=== PATIENT | female | born 1965 | race Caucasian/White ===

== ENCOUNTER 2016-10-06 19:49 | Emergency (ER) | payer MEDICAID ==
--- NOTE | 2016-10-06 20:33 | ERNOTE ---
Dyspnea - General Presenting Symptoms: shortness of breath, difficulty of breathing Time Seen by Provider: 10/06/16 20:23 Source: patient, EMS - Immun/Allergies/Home Medications Immunizations: IMMUNIZATION HX Immunizations Up to Date No History of Influenza Vaccine No Hx Pneumococcal Vaccination No Allergies/Adverse Reactions: Allergies ceftriaxone sodium [From Rocephin] Allergy (Severe, Verified 07/18/16 09:16) anaphylactic Home Medications: HOME MEDICATIONS Eszopiclone [Lunesta] 3 mg PO HS 04/21/15 [Last Taken 07/17/16] Prazosin HCl [Minipress] 5 - 10 mg PO HS 04/21/15 [Last Taken 07/17/16] Ziprasidone HCl [Geodon] 40 mg PO HS 04/21/15 [Last Taken 07/17/16] Diazepam 10 mg PO BID 12/09/15 [Last Taken 07/17/16] Albuterol Sulfate [Proair Hfa] 1 puff IH Q6H PRN 07/07/16 [Last Taken 07/17/16] Pantoprazole Sodium [Protonix] 40 mg PO DAILY 07/07/16 [Last Taken 07/17/16] rOPINIRole HCL [Requip] 1 mg PO HS 07/07/16 [Last Taken 07/17/16] Albuterol Sulfate [Proair Hfa] 2 puff IH TID PRN #1 inhaler 10/06/16 [Last Taken Unknown] - History of Present Illness Narrative: shortness of breath for 3 days. 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, oxygen Initiating event: Reports: upper resp illness Modifying Factors - (Improves): Reports: oxygen Modifying Factors (Worsens): Reports: coughing Associated Symptoms-Dyspnea: Reports: fever/chills, sweating, chest pain/ discomfort Review of Systems - Review of Systems Constitutional: Present: fever, chills EYE: Present: no symptoms reported ENT: Present: no symptoms reported Respiratory: Present: shortness of breath, cough, other - hemoptysis Cardiology: Present: no symptoms reported Gastrointestinal/Abdominal: Present: abdominal pain Genitourinary: Present: no symptoms reported Musculoskeletal: Present: no symptoms reported Skin: Present: no symptoms reported Neurological: Present: no symptoms reported Endocrine: Present: no symptoms reported Hematologic/Lymphatic: Present: no symptoms reported Psych: Present: no symptoms reported - Patient's Past Medical History Patient History - Medical: Anxiety, Chronic Pain, Depression Patient History - Cardiac/Respiratory: COPD Patient History - Cancer: No Hx of Cancer Patient History - Surgical Procedures: Appendectomy, Cholecystectomy, Colonoscopy, EGD, Hysterectomy, Total Knee Replacement - Family History Brother Family History - Medical: Diabetes Type 2 Family History - Cardiac/Respiratory: No pertinent hx Father Family History - Medical: No pertinent hx Family History - Cardiac/Respiratory: Myocardial Infarction Mother Family History - Medical: No pertinent hx Family History - Cardiac/Respiratory: Myocardial Infarction Sister Family History - Medical: No pertinent hx Family History - Cardiac/Respiratory: No pertinent hx - Social History Living Situations: home Does anyone smoke in the home?: Yes Smoking Status: Current every day smoker Have you smoked in the past 12 months: Yes Do you dip or chew tobacco: No Patient requests Smoking Cessation Consult: No Initiate information on Smoking Cessation: No Alcohol Use: none Drug Use: none Physical Exam - Physical Exam General Appearance: Present: wd/wn, mild distress, moderate distress Eye Exam: Normal inspection: bilateral Ears, Nose, Throat: Present: normal ENT inspection Respiratory: Present: no respiratory distress, no accessory muscle use, decreased breath sounds - on the left Cardiovascular/Chest: Present: regular rate, rhythm, no murmur, normal peripheral pulses Gastrointestinal/Abdominal: Present: tenderness - b/l upper quads, other - somewhat firm. Absent: guarding, rebound Neurological Exam: Present: alert, oriented, normal mood/affect, no motor/ sensory deficits Skin Exam: Present: normal color, warm/dry Lymphatic Exam: Present: no adenopathy ED Progress - Results and Orders Patient's Lab Results:: I have reviewed the patient's lab results. Results and Orders: Laboratory Tests 10/06/16 10/06/16 10/06/16 20:43 20:43 20:43 WBC 10.9 H Hgb 11.2 L Hct 36.5 L Plt Count 478 H D-Dimer 0.33 pCO2 pO2 HCO3 Total CO2 Base Excess ABG pH ABG O2 Sat (Measured) Sodium 145 H Potassium 3.4 Chloride 110 H Carbon Dioxide 22.9 L BUN 9 Creatinine 0.69 Est GFR (Non-Af Amer) 96 BUN/Creatinine Ratio 13.0 Random Glucose 121 H Calcium 8.0 Total Bilirubin 0.2 AST 23 ALT 32 Alkaline Phosphatase 163 Total Protein 7.4 Albumin 3.1 L 10/06/16 20:50 WBC Hgb Hct Plt Count D-Dimer pCO2 35.9 pO2 82.4 L HCO3 17.6 L Total CO2 18.7 L Base Excess -7.9 L ABG pH 7.31 L ABG O2 Sat (Measured) 95.3 Sodium Potassium Chloride Carbon Dioxide BUN Creatinine Est GFR (Non-Af Amer) BUN/Creatinine Ratio Random Glucose Calcium Total Bilirubin AST ALT Alkaline Phosphatase Total Protein Albumin - Vital Signs Patient's Vital Signs:: I have reviewed the patient's vital signs. Vital Signs: Vital Signs 10/06/16 10/06/16 19:58 20:02 Pulse Rate 111 H 106 H Respiratory 18 19 Rate Blood Pressure 128/76 128/76 O2 Sat by Pulse 95 95 Oximetry - X-Ray X-Ray #1 X-Ray: chest Interpretation: Interp. by me X-ray Comments: increased vascular markings, no infiltrate or pneumothorax - Progress/Reassessment Chief Complaint: Dyspnea Progress:: Improved Departure Clinical Impression: Bronchitis - Departure Disposition: Home Follow Up Needed Condition: Fair Instructions: Acute Bronchitis Additional Instructions: See your regular doctor in 5-7 days for follow up. Return to ER as needed Prescriptions: Albuterol Sulfate [Proair Hfa] 2 puff IH TID PRN #1 inhaler PRN Reason: Shortness Of Breath
[2016-10-06 20:46] LABS: Hematocrit 36.5 % (37.0-47.0); Hemoglobin 11.2 gm/dL (12.5-16.0); Mean Cell Volume 91.9 fl (78-100); Mean Corpuscular Hemoglobin 28.2 pg (27-31); Mean Corpuscular Hgb Conc 30.7 g/dl (32-36); Mean Platelet Volume 9.4 fl (6.0-9.5); Neutrophil # 5.9 K/mm3 (1.3-6.0); Neutrophil % 54.1 % (42-75.0); Platelet Count 478 K/mm3 (150-450); Red Blood Count 3.97 M/mm3 (4.2-5.4); Red Cell Distribution Width 15.3 % (11.5-14.0); White Blood Count 10.9 K/mm3 (4.0-10.5)
[2016-10-06 21:00] LABS: Albumin * 3.1 gm/dl (3.4-5.0); Anion Gap 15.5 mmol/L (6.8-13.8); Bilirubin, Total 0.2 mg/dL (0.0-1.1); Ca. Corrected For Albumin 8.4 mg/dL (8.4-10.2); Carbon Dioxide 22.9 mmol/L (24-32.6); Potassium 3.4 mmol/L (3.4-4.6); Total Protein 7.4 gm/dL (6.2-8.2)
[2016-10-06 23:11] VITALS: BP 115/90
== END 2016-10-06 23:55 | disposition home or self-care (01) ==
LOC: ER 19:49
PROC: 4A033R1 Measurement of Arterial Saturation, Peripheral, Percutaneous Approach (ICD-10-PCS; principal; 2016-10-06)
DX: J40 Bronchitis, not specified as acute or chronic (principal); F17.200 Nicotine dependence, unspecified, uncomplicated